=== PATIENT | female | born 1985 | race Hispanic/Latino ===

== ENCOUNTER 2024-06-24 15:19 | Emergency (ER) | payer SELFPAY ==
[2024-06-24] MEDS ORDERED: MORPHINE 2 MG/ML SYR ONE ×2 (15:41→16:38)
[2024-06-24] MEDS ORDERED: NA CHLORIDE 0.9% 500 ML ONE (15:42)
[2024-06-24] MEDS ORDERED: ONDANSETRON 4 MG/2 ML VIAL ONE (15:42)
--- NOTE | 2024-06-24 16:40 | ER ---
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 Vinegar and meat tenderizer hasn't helped. VSS. Coronavirus screen: Client denies travel out of the [place] in the last 14 days. At this time, the client does not indicate any symptoms associated with coronavirus-19. Ebola Screen: Patient denies travel to an Ebola-affected area in the 21 days before illness onset. Initial Sepsis Screen: Does the patient meet any 2 criteria? No. Patient's initial sepsis screen is negative. Does the patient have a suspected source of infection? No. Patient's initial sepsis screen is negative. Risk Assessment: Do you want to hurt yourself or someone else? Patient reports no desire to harm self or others. Onset of symptoms was June 24, 2024. 15:20 Method Of Arrival: Ambulatory 1 15:20 Acuity: CHANA 5 ll1 Triage Assessment: 15:22 General: Appears distressed, uncomfortable, Behavior is cooperative, appropriate for ll1 age, crying. Pain: Complains of pain in right hand Pain currently is 10 out of 10 on a pain scale. Quality of pain is described as burning, aching. Derm: Reports jellyfish sting to R hand. Musculoskeletal: Circulation, motion, and sensation intact. Capillary refill < 3 seconds, in right fingers. Reports pain in right hand. 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 - Infectious Disease History:: Denies. - Social history:: Smoking status: Patient denies any tobacco usage or history of. Screenin:25 [facility] ED Fall Risk Assessment (Adult) History of falling in the last 3 months, ll1 including since admission No falls in past 3 months (0 pts) Confusion or Disorientation No (0 pts) Intoxicated or Sedated No (0 pts) Impaired Gait No (0 pts) Mobility Assist Device Used No (0 pt) Altered Elimination No (0 pt) Score/Fall Risk Level 0 - 2 = Low Risk Maintained a safe environment, Hourly rounding (assess needs \T\ fall precautionary measures) done. Abuse screen: Denies threats or abuse. Nutritional screening: No deficits noted. Tuberculosis screening: No symptoms or risk factors identified. Assessment: 15:54 Reassessment: No changes from previously documented assessment. Patient and/or family ll1 updated on plan of care and expected duration. Pain level reassessed. Patient is alert, oriented x 3, equal unlabored respirations, skin warm/dry/pink. 15:57 Reassessment: No changes from previously documented assessment. Patient and/or family ll1 updated on plan of care and expected duration. Pain level reassessed. new hot water bucket to R hand. 16:34 Reassessment: No changes from previously documented assessment. Patient and/or family ll1 updated on plan of care and expected duration. Pain level reassessed. Patient states feeling better. 17:25 Reassessment: No changes from previously documented assessment. Patient and/or family ll1 updated on plan of care and expected duration. Pain level reassessed. Patient is alert, oriented x 3, equal unlabored respirations, skin warm/dry/pink. Patient states feeling better. Vital Signs: 15:20 BP 128 / 76; Pulse 61; Resp 16; Temp 97.6; Pulse Ox 100% ; Weight 58.06 kg; Height 5 ll1 ft. 0 in. ; Pain 10/10; 17:25 BP 121 / 61; Pulse 68; Resp 17; Pulse Ox 97% ; Pain 6/10; ll1 15:20 Body Mass Index 25.00 (58.06 kg, 152.4 cm) ll1 15:20 Pain Scale: Adult ll1 17:25 Pain Scale: Adult ll1 ED Course: 15:20 Patient arrived in ED. ll1 15:21 Triage completed. ll1 15:22 Madelyn Musa RN is Primary Nurse. ll1 15:22 Arm band placed on Patient placed in an exam room, on a stretcher. 1 15:25 Provided Education on: ER procedures and process. ll1 15:31 Edd Quiroz MD is Attending Physician. [facility] 15:54 Inserted saline lock: 20 gauge in left antecubital area, using aseptic technique. Blood am7 collected. Flushed with 10 mL NS. 17:04 Wound care: to jellyfish sting R hand located on right hand was cleaned with Hibiclens, ll1 Patient tolerated well. new hot water to R hand after cleansing. 17:26 Patient has correct armband on for positive identification. Bed in low position. ll1 17:26 No provider procedures requiring assistance completed. IV discontinued, intact, ll1 bleeding controlled, No redness/swelling at site. Pressure dressing applied. Administered Medications: 15:45 Drug: NS 0.9% IV 500 ml 500 ml IV at 1 bolus once; to be given as a bolus over 30 ll1 minutes Volume: 500 ml; Route: IV; Rate: 1 bolus; Site: left antecubital; 17:24 Follow up: Response: No adverse reaction; IV Status: Completed infusion; IV Intake: ll1 500ml 15:45 Drug: morphine IVP or IV 2 mg IVP once over 4 mins Route: IVP; Infused Over: 4 mins; 1 Site: left antecubital; 17:24 Follow up: Response: No adverse reaction; Pain is decreased; RASS: [facility] 15:45 Drug: Ondansetron IVP 2 mg IVP once; over 2 minutes Route: IVP; Site: left antecubital; 1 17:25 Follow up: Response: No adverse reaction [facility] 16:41 Drug: morphine IVP or IV 2 mg IVP once over 4 mins {Note: pain 9/10 RASS 0.} Route: ll1 IVP; Infused Over: 4 mins; Site: left antecubital; 17:24 Follow up: Response: No adverse reaction; Pain is decreased; RASS: [facility] 17:24 Drug: Hydrocodone-Acetaminophen PO (7.5 mg-325 mg) 1 tabs PO once Route: PO; 1 17:25 Follow up: Response: No adverse reaction; RASS: [facility] Medication: 17:26 VIS not applicable for this client. ll1 Intake: 17:24 IV: 500ml; Total: 500ml. ll1 Outcome: 16:39 Discharge ordered by . alexis 17:26 Discharged to home ambulatory, ll1 17:26 Condition: stable 17:26 Discharge instructions given to patient, family, Instructed on discharge instructions, follow up and referral plans. no drinking with medication, no driving heavy equipment, medication usage, Demonstrated understanding of instructions, follow-up care, medications, Prescriptions given X 1, 17:27 Patient left the ED. ll1 Signatures: Edd Quiroz MD MD cha Lewis, Lynsay RN RN ll1 Juani Felton am7 Corrections: (The following items were deleted from the chart) 15:55 15:52 Inserted saline lock: 20 gauge in left antecubital area, using aseptic technique. am7 Flushed with 10 mL NS am7 17:30 17:25 BP 121 / 61; Pulse 68bpm; Resp 17bpm; Pulse Ox 97%; ll1 ll1
--- NOTE | 2024-06-24 16:40 | EDPHYS ---
Physician Documentation [facility] Name: Didi Espinal Age: 39 yrs Sex: Female : 1985 Arrival Date: 06/24/2024 Time: 15:19 Bed 6 Private MD: ED Physician Edd Quiroz HPI: 06/24 16:34 This 39 yrs old Female presents to ER via Ambulatory with complaints of Hand alexis Pain. 16:34 The patient or guardian reports pain, a rash, tenderness. The complaints affect the alexis right hand diffusely. Context: [place]. Onset: The symptoms/episode began/occurred just prior to arrival. Modifying factors: The symptoms are alleviated by hot water. Associated signs and symptoms: The patient has no apparent associated signs or symptoms. Severity of symptoms: At their worst the symptoms were moderate, in the emergency department the symptoms are unchanged. The patient has not experienced similar symptoms in the past. 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 - Infectious Disease History:: Denies. - Social history:: Smoking status: Patient denies any tobacco usage or history of. ROS: 16:35 Constitutional: Negative for fever, chills, and weight loss, Eyes: Negative for injury, alexis pain, redness, and discharge, ENT: Negative for injury, pain, and discharge, Neck: Negative for injury, pain, and swelling, Cardiovascular: Negative for chest pain, palpitations, and edema, Respiratory: Negative for shortness of breath, cough, wheezing, and pleuritic chest pain, Abdomen/GI: Negative for abdominal pain, nausea, vomiting, diarrhea, and constipation, Back: Negative for injury and pain, : Negative for injury, bleeding, discharge, and swelling, MS/Extremity: Negative for injury and deformity, Neuro: Negative for headache, weakness, numbness, tingling, and seizure, Psych: Negative for depression, anxiety, suicide ideation, homicidal ideation, and hallucinations, Allergy/Immunology: Negative for hives, rash, and allergies, Endocrine: Negative for neck swelling, polydipsia, polyuria, polyphagia, and marked weight changes, Hematologic/Lymphatic: Negative for swollen nodes, abnormal bleeding, and unusual bruising, 16:35 Skin: Positive for erythema, swelling, of the right hand, Exam: 16:35 Constitutional: This is a well developed, well nourished patient who is awake, alert, alexis and in no acute distress. Head/Face: Normocephalic, atraumatic. Eyes: Pupils equal round and reactive to light, extra-ocular motions intact. Lids and lashes normal. Conjunctiva and sclera are non-icteric and not injected. Cornea within normal limits. Periorbital areas with no swelling, redness, or edema. ENT: Nares patent. No nasal discharge, no septal abnormalities noted. Tympanic membranes are normal and external auditory canals are clear. Oropharynx with no redness, swelling, or masses, exudates, or evidence of obstruction, uvula midline. Mucous membranes moist. Neck: Trachea midline, no thyromegaly or masses palpated, and no cervical lymphadenopathy. Supple, full range of motion without nuchal rigidity, or vertebral point tenderness. No Meningismus. Chest/axilla: Normal chest wall appearance and motion. Nontender with no deformity. No lesions are appreciated. Cardiovascular: Regular rate and rhythm with a normal S1 and S2. No gallops, murmurs, or rubs. Normal PMI, no JVD. No pulse deficits. Respiratory: Lungs have equal breath sounds bilaterally, clear to auscultation and percussion. No rales, rhonchi or wheezes noted. No increased work of breathing, no retractions or nasal flaring. Abdomen/GI: Soft, non-tender, with normal bowel sounds. No distension or tympany. No guarding or rebound. No evidence of tenderness throughout. Back: No spinal tenderness. No costovertebral tenderness. Full range of motion. Skin: Warm, dry with normal turgor. Normal color with no rashes, no lesions, and no evidence of cellulitis. Neuro: Awake and alert, GCS 15, oriented to person, place, time, and situation. Cranial nerves II-XII grossly intact. Motor strength 5/5 in all extremities. Sensory grossly intact. Cerebellar exam normal. Normal gait. Psych: Awake, alert, with orientation to person, place and time. Behavior, mood, and affect are within normal limits. 16:35 Musculoskeletal/extremity: ROM: limited active range of motion due to pain, limited passive range of motion due to pain, in the right hand, Circulation is intact in all extremities. Sensation intact. Compartment Syndrome exam of affected extremity: is normal. Weight bearing: able to fully bear weight, without difficulty, DVT Exam: No signs of deep vein thrombosis. no pain, no swelling, no tenderness, negative Homans' sign noted on exam, no appreciated bluish discoloration, no erythema, no increased warmth, Vital Signs: 15:20 BP 128 / 76; Pulse 61; Resp 16; Temp 97.6; Pulse Ox 100% ; Weight 58.06 kg; Height 5 ll1 ft. 0 in. ; Pain 10/10; 17:25 BP 121 / 61; Pulse 68; Resp 17; Pulse Ox 97% ; Pain 6/10; ll1 15:20 Body Mass Index 25.00 (58.06 kg, 152.4 cm) ll1 15:20 Pain Scale: Adult ll1 17:25 Pain Scale: Adult ll1 MDM: 15:31 Medical Screening Exam initiated [facility] 16:37 Differential diagnosis: contusion, abrasion, tendonitis. Data reviewed: vital signs, [facility] nurses notes, lab test result(s), CBC, electrolytes, urinalysis. Consideration of Admission/Observation Escalation of care including admission/observation considered. I considered the following discharge prescriptions or medication management in the emergency department Medications were administered in the Emergency Department. See MAR. Test considered but Not performed: X-ray: no x rays. Historians other than the Patient: EMS: ems well in formed. Care significantly affected by the following chronic conditions: none. Counseling: I had a detailed discussion with the patient and/or guardian regarding the historical points, exam findings, and any diagnostic results supporting the discharge/admit diagnosis, lab results, the need for outpatient follow up, for definitive care, a family practitioner. 06/24 15:39 Order name: [facility]. Order: hot water; Complete Time: 15:40 [facility] Administered Medications: 15:45 Drug: NS 0.9% IV 500 ml 500 ml IV at 1 bolus once; to be given as a bolus over 30 ll1 minutes Volume: 500 ml; Route: IV; Rate: 1 bolus; Site: left antecubital; 17:24 Follow up: Response: No adverse reaction; IV Status: Completed infusion; IV Intake: ll1 500ml 15:45 Drug: morphine IVP or IV 2 mg IVP once over 4 mins Route: IVP; Infused Over: 4 mins; 1 Site: left antecubital; 17:24 Follow up: Response: No adverse reaction; Pain is decreased; RASS: Alert and Calm (0) 1 15:45 Drug: Ondansetron IVP 2 mg IVP once; over 2 minutes Route: IVP; Site: left antecubital; 1 17:25 Follow up: Response: No adverse reaction 1 16:41 Drug: morphine IVP or IV 2 mg IVP once over 4 mins {Note: pain 9/10 RASS 0.} Route: ll1 IVP; Infused Over: 4 mins; Site: left antecubital; 17:24 Follow up: Response: No adverse reaction; Pain is decreased; RASS: Alert and Calm (0) [facility] 17:24 Drug: Hydrocodone-Acetaminophen PO (7.5 mg-325 mg) 1 tabs PO once Route: PO; 1 17:25 Follow up: Response: No adverse reaction; RASS: Alert and Calm (0) [facility] Disposition Summary: 06/24/24 16:39 Discharge Ordered Notes: Location: Home alexis Problem: new alexis Symptoms: have improved alexis Condition: Stable alexis Diagnosis - Bitten by other nonvenomous marine animals, initial encounter alexis Followup: alexis - With: Private Physician - When: 2 - 3 days - Reason: Recheck today's complaints, Continuance of care, Re-evaluation by your physician Discharge Instructions: - Discharge Summary Sheet alexis - Marine Life Injury alexis - Marine Life Injury, [id number] alexis Forms: - Medication Reconciliation Form alexis - Antibiotic Education alexis - Prescription Opioid Use alexis - Patient Portal Instructions [facility] - Leadership Thank You Letter [facility] Prescriptions: - Tylenol-Codeine #3 300mg-30mg Oral tablet - take 2 tablets ORAL route every 6 hours As needed; 16 tablet; Refills: 0, alexis Product Selection Permitted Signatures: Dispatcher [employer] Edd Kothari MD MD cha Lewis, Lynsay RN RN ll1
[2024-06-24] MEDS ORDERED: HYDROCODONE/APAP 7.5/325 MG TAB ONE (17:22)
[2024-06-24 17:53] VITALS: TEMP 97.6
[2024-06-24 17:54] VITALS: BP 121/61; O2SAT 97
== END 2024-06-24 17:27 | disposition home or self-care (01) ==
LOC: ER 15:19
DX: R21 Rash and other nonspecific skin eruption (principal); W57.XXXA Bitten or stung by nonvenomous insect and other nonvenomous arthropods, initial encounter
CPT/HCPCS: 96361; 96374; 96375; 99284; J2270; J2405; J7040